=== PATIENT | female | born 1950 | race Caucasian/White ===

== ENCOUNTER → 2017-12-27 | Outpatient (CLI) | payer OTHER, MEDICARE | LOC: BRMIMAGING 09:45 | PROVIDERS: ATTEND Family Medicine | DX: N63.11 Unspecified lump in the right breast, upper outer quadrant (principal); Z80.3 Family history of malignant neoplasm of breast | CPT/HCPCS: 76641-PO ==

== ENCOUNTER → 2018-12-31 | Outpatient (CLI) | payer OTHER, MEDICARE | LOC: CIMAGING 09:44 | PROVIDERS: ATTEND Family Medicine | DX: Z12.31 Encounter for screening mammogram for malignant neoplasm of breast (principal); Z80.3 Family history of malignant neoplasm of breast ==